=== PATIENT | female | born 1960 | race African-American/Black ===

== ENCOUNTER 2019-07-22 10:58 | Inpatient (IN) ==
[2019-07-22] MEDS ORDERED: PHENERGAN IV PRN (12:31)
[2019-07-22] MEDS ORDERED: DESYREL PO PRN (12:31)
[2019-07-22] MEDS ORDERED: SODIUM CHLORIDE 0.9% INJ PRN (12:31)
[2019-07-22] MEDS ORDERED: TYLENOL PO PRN (12:31)
[2019-07-22] MEDS: DUONEB (A & A) INH SCH ×4 (12:45→23:05)
--- NOTE | 2019-07-22 12:51 | Diag Imaging Result Doc PS360 ---
EXAM: CHEST-2 VIEWS HISTORY: acute asthma attack TECHNIQUE: Two views COMPARISON: None. FINDINGS: The lungs are well expanded. The heart is borderline mildly prominent. There is mild vascular distention. No pleural effusions. No consolidation. Mild scoliosis. IMPRESSION: Mild pulmonary edema. Electronically signed by Sarabjit Noyola 07/22/2019 12:49 PM
[2019-07-22 14:24] LABS: BASO# 0.02 X1000 (0.0-0.2); BASO% 0.2 % (0.0-0.8); EOS# 0.25 X1000 (0.0-0.7); EOS% 2.6 % (0.0-10.0); HEMATOCRIT 29.6 % (37.0-47.0); IMM GRAN# 0.02 X1000 (0.0-0.04); IMM GRAN% 0.2 % (0.0-0.5); LYMPH# 1.95 X1000 (1.2-3.4); LYMPH% 20.4 % (20.5-51.1); MCH 29.6 PG (27-31); MCHC 30.4 g/dL (33-37); MCV 97.4 FL (81-99); MONO# 1.16 X1000 (0.11-0.59); MONO% 12.1 % (1.7-9.3); MPV 9.8 FL (7.4-10.4); NEUT# 6.16 X1000 (1.4-6.5); NEUT% 64.5 % (42.2-75.2); PLT 300 X1000 (130-400); RBC 3.04 XMIL (4.2-5.4); RDW 14.1 % (11.5-14.5); WBC 9.56 X1000 (4.8-10.8)
[2019-07-22 15:05] LABS: CALCIUM 8.8 mg/dL (8.8-10.2); POTASSIUM 4.1 mmol/L (3.5-5.1)
[2019-07-22 15:09] LABS: CREATININE 8.8 mg/dL (0.5-0.9)
[2019-07-22] MEDS: SOLU-MEDROL IV SCH ×2 (15:09→20:31)
[2019-07-22] MEDS: ROCEPHIN 1 GM in NS 50 ML IV SCH (15:09)
--- NOTE | 2019-07-22 18:18 | NEPHROLOGY CONSULTATION ---
DATE: 07/22/2019 REASON FOR CONSULTATION: ESRD, and dialysis Friday, Friday and Friday. HISTORY OF PRESENT ILLNESS: Ms. Leal is a 58-year-old woman who is currently receiving hemodialysis every Friday, Friday, Friday for management of hypertensive-related ESRD. She currently takes cinacalcet, sevelamer, rivaroxaban, omeprazole. She attended her routine treatment on yesterday and states she has been leaving below her dry weight but she had 1 kg yesterday. She has had worsening shortness of breath since the weekend, with hoarseness, cough, minimal sputum and subjective fever. Ultimately because her symptoms were worsening, she sought attention with Dr. Palafox and was admitted to the hospital. Currently she is on 2 L nasal cannula oxygen and receiving inhaled bronchodilator treatment. She cannot tell that she has received any particular benefit thus far from the and inhaled albuterol treatment. No other new symptoms. PAST MEDICAL HISTORY: As above. HOME MEDICATIONS: As above. ALLERGIES: None. SOCIAL HISTORY: No tobacco or alcohol. FAMILY HISTORY: Otherwise noncontributory. REVIEW OF SYSTEMS: Otherwise noncontributory. PHYSICAL EXAMINATION: Blood pressure 150/79, heart rate 90, respirations 21, afebrile. Generally, no acute distress. Skin is warm and dry. Neck veins are not distended. Trachea is midline. PMI nondisplaced. Regular rate and rhythm. No gallops or murmurs. Lungs have equal breath sounds. Good air movement. No wheezes or crackles. Abdomen is soft, obese, nontender. Bowel sounds present. No organomegaly or masses.Extremities: No edema, clubbing or cyanosis. IMPRESSION AND PLAN: Chronic kidney disease 5D. She will have her routine hemodialysis tomorrow, at which time we will attempt to lower her dry weight 1 kg from her last outpatient dry weight. Electrolytes/acid base/blood pressure are in target. Hemoglobin is modestly below target at 9.0. Observe. cc: MD Ron Dewey MD
[2019-07-22] MEDS: RENAGEL PO SCH (20:31)
[2019-07-22] MEDS: XARELTO PO SCH (20:31)
[2019-07-22] MEDS: SENSIPAR PO SCH (20:31)
[2019-07-22] MEDS: PRILOSEC PO SCH (20:31)
[2019-07-23] MEDS: DUONEB (A & A) INH SCH ×6 (03:24→23:20)
[2019-07-23] MEDS: SOLU-MEDROL IV SCH ×4 (03:58→22:06)
--- NOTE | 2019-07-23 07:26 | PROGRESS NOTE ---
DATE: 07/23/2019 Ms. Leal was admitted to [facility] with acute asthma exacerbation. Her initial chest x-ray demonstrated no obvious infiltrates. She is breathing more comfortably this morning. She reports that she is not coughing as much as she has been over the past several days. She is less hoarse. She continues with wheezing with forced expiration. She is maintaining O2 saturations of 95% to 96% on supplemental O2. She does have a history of end-stage renal disease on hemodialysis. She normally dialyzes on Friday, Friday, and Friday. OBJECTIVE: Temperature 97.9 degrees, pulse 83, respirations 15, BP 116/64.CV: Regular rate and rhythm. Lungs: She still has end expiratory wheezing with forced expiration in all lung weathers. Abdomen: Soft, nontender, with active bowel sounds. Extremities: Without edema. ASSESSMENT AND PLAN: 1. Acute asthma exacerbation with tracheobronchitis. I will continue Rocephin, IV methylprednisolone and DuoNeb nebulizer treatments. I am going to begin Dulera 100/5 one puff b.i.d. as a maintenance inhaler. I am going to call the dialysis center to confirm the dates of previous pneumonia vaccinations. 2. End-stage renal disease on hemodialysis. She is scheduled for routine dialysis today per Dr. Sarah. cc: Ron Palafox MD
[2019-07-23] MEDS: DULERA 100 MCG/5 MCG INHALER INH SCH ×2 (07:42→23:19)
[2019-07-23] MEDS ORDERED: TIGHT: 0.2 ML/HR FOR DIALYSIS MISC PRN (07:56)
[2019-07-23] MEDS ORDERED: HEPARIN IV PRN (07:56)
[2019-07-23] MEDS ORDERED: NS 2,000 ML MISC PRN (07:56)
[2019-07-23] MEDS: RENAGEL PO SCH ×3 (09:13→17:43)
--- NOTE | 2019-07-23 13:58 | NEPHROLOGY PROGRESS NOTE ---
DATE: 07/23/2019 SUBJECTIVE: She states she is some better today. Denies shortness of breath. She has been up in the shower and performing self-care. Ate her breakfast. OBJECTIVE: Vital Signs: Blood pressure 134/72, heart rate 92, respirations 22, afebrile. General: No acute distress. Skin: Warm and dry. Neck: Neck veins are not distended. Heart: Regular. No gallops. Lungs: Equal. No crackles. Forced expiration does not induce wheezing. Abdomen: Soft, obese, nontender. Bowel sounds present. Extremities: No edema, clubbing, or cyanosis. IMPRESSION: Chronic kidney disease 5D. She will have her routine hemodialysis treatment today but we will set UF to lower her dry weight 1 kg. Otherwise, 2 potassium bath. Electrolytes/acid base in target. Hemoglobin is below target but does not meet criteria for transfusion. Blood pressure in target. cc: MD Ron Dewey MD
[2019-07-23] MEDS: ROCEPHIN 1 GM in NS 50 ML IV SCH (15:20)
[2019-07-23] MEDS: SENSIPAR PO SCH (22:08)
[2019-07-23] MEDS: PRILOSEC PO SCH (22:08)
[2019-07-23] MEDS: ROBITUSSIN-AC PO PRN (22:09)
[2019-07-23] MEDS: XARELTO PO SCH (22:09)
[2019-07-24] MEDS: DUONEB (A & A) INH SCH ×6 (03:04→22:39)
[2019-07-24] MEDS: SOLU-MEDROL IV SCH ×2 (04:12→17:31)
[2019-07-24] MEDS: DULERA 100 MCG/5 MCG INHALER INH SCH ×2 (07:42→19:57)
[2019-07-24] MEDS: RENAGEL PO SCH ×3 (09:05→17:31)
[2019-07-24] MEDS: ROBITUSSIN-AC PO PRN ×2 (09:17→20:19)
--- NOTE | 2019-07-24 10:21 | PROGRESS NOTE ---
DATE: 07/24/2019 Ms. Leal was at admitted to [facility] with an acute exacerbation of asthma with tracheobronchitis. Clinically, she continues to improve. She is breathing comfortably. She is maintaining O2 saturations of 96% to 98% on 2 L of O2. Her cough has improved. She has less pleuritic chest discomfort. She was able to sleep through the night without significant coughing fits. She did take Robitussin AC cough syrup on a p.r.n. basis. Her voice is much stronger, the hoarseness has improved significantly. She does have a history of end-stage renal disease on hemodialysis. She underwent dialysis yesterday. She denies any chest pain, palpitations, or anginal equivalents. OBJECTIVE: Vital Signs: Temperature 98 degrees pulse 92, respiratory rate 16, BP 105/48. CV: Regular rate and rhythm. Lungs: Clear. Abdomen: Soft, nontender, with active bowel sounds. No hepatosplenomegaly. No abdominal bruits. Extremities: Without edema. ASSESSMENT AND PLAN: Acute asthma exacerbation. Clinically she is better. We will continue Dulera 2 puffs b.i.d. I will titrate downward on the methylprednisolone to 40 mg IV q.12 hours. We will check a room air O2 saturation to see if she needs oxygen. We will increase activity. She had the Pneumovax on 11/09/2018. She had a flu vaccine in May 2019. cc: Ron Palafox MD
[2019-07-24] MEDS: ROCEPHIN 1 GM in NS 50 ML IV SCH (15:40)
[2019-07-24] MEDS: SENSIPAR PO SCH (20:12)
[2019-07-24] MEDS: XARELTO PO SCH (20:12)
[2019-07-24] MEDS: PRILOSEC PO SCH (20:13)
[2019-07-25] MEDS: DUONEB (A & A) INH SCH ×3 (04:15→11:07)
[2019-07-25] MEDS: SOLU-MEDROL IV SCH (04:50)
[2019-07-25] MEDS: DULERA 100 MCG/5 MCG INHALER INH SCH (07:45)
[2019-07-25 07:57] VITALS: BP 127/65
[2019-07-25] MEDS: RENAGEL PO SCH (08:45)
[2019-07-26] MEDS ORDERED: LEVAQUIN PO SCH (09:00)
--- NOTE | 2019-07-27 20:56 | DISCHARGE SUMMARY ---
ADMISSION DATE: 07/22/2019 DISCHARGE DATE: 07/25/2019 DISCHARGE DIAGNOSES: 1. Acute respiratory failure with hypoxemia. 2. Mild intermittent asthma with acute exacerbation. 3. Acute tracheal bronchitis. 4. End-stage renal disease on hemodialysis. 5. Renal cell carcinoma of the right kidney. 6. History of right nephrectomy. 7. 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 DISCHARGE PHYSICAL EXAMINATION: This is a well-developed, well-nourished, 58-year-old lady in no apparent distress. She is afebrile. Pulse 87, respirations 22, BP 127/65. CV: Regular rate and rhythm. Lungs: Clear. Abdomen: Soft, nontender with active bowel sounds. DISCHARGE INSTRUCTIONS: 1. Return to clinic in 1 week to see me, Dr. Fareed Palafox, in anticipation of a transition of care visit. 2. Activity as tolerated. 3. Renal diet. 4. Medications. Dulera 100/5 two puffs b.i.d., Levaquin 250 mg daily for 5 days, Robitussin AC 10 mL q.4 to 6 hours p.r.n. cough, Sensipar 60 mg daily, Renvela 4000 mg t.i.d. with meals, Xarelto 20 mg daily, omeprazole 20 mg daily, Proventil MDI 2 puffs q.6 hours p.r.n. shortness of breath. Ms Leal presented to my office complaining of increasing shortness of breath, increasing work of breathing, nonproductive cough, pleuritic chest pain, low-grade fever and hard shaking rigors. Her initial chest x-ray demonstrated clear lung weathers. We admitted her to [facility] where we treated her with supplemental O2, intravenous methylprednisolone, DuoNeb nebulizer treatments and broad-spectrum antibiotics including Rocephin. Over the course of the next several days we were gradually able to wean her off supplemental O2, IV prednisone and continued on DuoNeb nebulizer treatments without regression of her symptoms. We added Dulera 100/5 two puffs b.i.d. and gave her Proventil MDI 2 puffs q.6 hours p.r.n. shortness of breath. She has had a flu shot in May 2019. She had the pneumococcal vaccine on 11/09/2018. She will need a Prevnar vaccination next year. We gradually increased activity and she was able to walk in the halls and shower without shortness of breath or coughing. She will continue Dulera 100/5 two puffs b.i.d., Proventil MDI 2 puffs q.6 hours p.r.n. shortness of breath and short course of Levaquin as an outpatient. She does have a history of end-stage renal disease on dialysis. She dialyzes on Friday, Friday, and Friday. Dr. Sarah saw her in consultation and managed her routine hemodialysis. She does have a history of recurrent DVT with PTE. She was continued on Xarelto 20 mg daily. Having reached maximum hospital benefit, the patient was discharged in stable condition. cc: Ron Palafox MD
== END 2019-07-25 11:49 | disposition home or self-care (01) | DRG 202 ==
LOC: DIRADM 10:58 → MERGE 10:58 → EDIPHOLD 11:55 → 1N 13:54
PROVIDERS: ADMIT Internal Medicine; ATTEND Internal Medicine